=== PATIENT | male | born 1945 | race Caucasian/White ===

== ENCOUNTER 2016-10-10 11:31 | Outpatient (CLI) | payer MEDICARE | END 2016-10-10 11:32 | disposition home or self-care (01) | DX: E55.9 Vitamin D deficiency, unspecified (principal) ==

== ENCOUNTER 2016-11-14 12:49 | Outpatient (CLI) | payer MEDICARE | END 2016-11-14 12:50 | disposition home or self-care (01) | DX: R97.20 Elevated prostate specific antigen [PSA] (principal); N40.0 Benign prostatic hyperplasia without lower urinary tract symptoms ==

== ENCOUNTER 2017-10-23 14:23 | Outpatient (CLI) | payer MEDICARE ==
--- NOTE | 2017-10-23 19:02 | XRAY Report ---
THREE VIEW LEFT ELBOW: 10/23/2017 CLINICAL INDICATION: Pain. FINDINGS: AP, lateral, oblique views of the left elbow demonstrate no evidence of fracture or dislocation. Minimal osteoarthritis is present, with small osteophytes. No foreign body is seen in the soft tissues. IMPRESSION: MINIMAL OSTEOARTHRITIS. TD: 10/23/2017 18:54
--- NOTE | 2017-10-23 19:02 | XRAY Report ---
COMPLETE CERVICAL SPINE: 10/23/2017 CLINICAL INDICATION: Neck pain. 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 Osseous neural foraminal narrowing is present from C4 through C7 bilaterally. There is no evidence of acute fracture or subluxation. IMPRESSION: DEGENERATIVE CHANGES. BILATERAL OSSEOUS NEURAL FORAMINAL NARROWING. TD: 10/23/2017 18:54
== END 2017-10-23 14:24 | disposition home or self-care (01) ==
LOC: DI 14:23
PROVIDERS: ATTEND Internal Medicine
DX: M47.892 Other spondylosis, cervical region (principal); M48.12 Ankylosing hyperostosis [Forestier], cervical region; M19.022 Primary osteoarthritis, left elbow
CPT/HCPCS: 72050

== ENCOUNTER 2018-09-16 13:53 | Outpatient (CLI) | payer MEDICARE | END 2018-09-16 13:54 | disposition home or self-care (01) | LOC: DI 13:53 | PROVIDERS: ATTEND Internal Medicine | DX: I49.3 Ventricular premature depolarization (principal) | CPT/HCPCS: 93306 ==

== ENCOUNTER 2020-10-03 08:35 | Day surgery (SDC) | payer MEDICARE ==
[2020-10-03] MEDS ORDERED: LACTATED RINGERS 1,000 ML IV ONE ×2 (09:00→12:10)
--- NOTE | 2020-10-03 09:40 | ANESTHESIA ---
Pre-Anesthesia VS, & Labs - Diagnosis hx of colon polyps - Procedure colonoscopy Vital Signs: Temp Pulse Resp BP Pulse Ox 35.9 C L 84 16 142/90 H 99 10/03/20 09:00 10/03/20 09:00 10/03/20 09:00 10/03/20 09:00 10/03/20 09:00 Height: 6 ft Weight (kg): 92.7 kg Body Mass Index: 27.7 BMI Classification: Overweight - NPO >8 hours Home Medications and Allergies Home Medications: Ambulatory Orders Bicalutamide [Casodex] 50 mg PO DAILY 10/02/20 Tamsulosin [Flomax] 0.4 mg PO DAILY 10/02/20 allopurinoL [Allopurinol] 100 mg PO DAILY 09/29/15 Bicalutamide [Casodex] 50 mg PO DAILY 10/02/20 Tamsulosin [Flomax] 0.4 mg PO DAILY 10/02/20 Allergies/Adverse Reactions: Allergies Allergy/AdvReac Type Severity Reaction Status Date / Time No Known Drug Allergies Allergy Verified 10/03/20 09:17 Anes History & Medical History - Anesthetic History Anesthesia Complications: reports: No previous complications (HX Prostate CA) Family history of Anesthesia Complications: Denies Family history of Malignant Hyperthermia: Denies - Medical History Cardiovascular: reports: None, Arrhythmia Pulmonary: reports: None Gastrointestinal: reports: Colon polyps Urinary: reports: Other Musculoskeletal: reports: Gout Endocrine/Autoimmune: reports: None Blood Disorders: reports: None Skin: reports: Herpes zoster Smoking Status: Never smoker Psychosocial: reports: Alcohol History of Cancer?: Yes (Prostate CA) - Surgical History General: Colonoscopy Eyes Ears Nose Throat (EENT): Other ([place], hearing aids out) Orthopedic: Other Exam Dental: WNL Mouth Openin Fingerbreadth Neck Mobility: Normal Mallampati classification: III Thyromental Distance: 4-6 cm Respiratory: Lungs clear Cardiovascular: Regular rate, Normal S1, Normal S2, No murmurs Abdomen: Normal bowel sounds, Soft, No tenderness, No hepatospenomegaly, No masses Extremities: No clubbing, No cyanosis, No edema, Normal pulses, No tende rness/swelling Neurological: Normal gait, Normal speech, Strength at 5/5 X4 ext, Normal tone, Sensation intact, Cranial nerves 3-12 NL, Reflexes 2+ Mental/Cognitive Status: Alert/Oriented X3, Normal for patient Cognitive Status: Within normal limits Plan Anesthesia Type: MAC Consent for Procedure(s) Verified and Reviewed: Yes Code Status: Attempt Resuscitation ASA classification: 2-Mild systemic disease Is this case an emergency?: No
[2020-10-03] MEDS ORDERED: ONDANSETRON 4 MG/2 ML VIAL IVP PRN (09:55)
[2020-10-03] MEDS ORDERED: ePHEDrine 50 MG/ML VIAL IVP PRN (09:55)
[2020-10-03] MEDS ORDERED: NALOXONE 0.4 MG/ML VIAL IVP PRN (09:55)
[2020-10-03] MEDS ORDERED: ATROPINE ABBOJECT 1 MG/10 ML SYRINGE IVP PRN (09:55)
[2020-10-03] MEDS ORDERED: LACTATED RINGERS 1,000 ML IV SCH (10:00)
[2020-10-03 13:00] VITALS: BP 128/74
--- NOTE | 2020-10-03 15:01 | ANESTHESIA POST OP EVALUATION ---
Anesthesia Post Eval - Post Anesthesia Eval Vitals: Last Vital Signs Temp 36.6 C 10/03/20 12:55 Pulse 62 10/03/20 12:55 Resp 16 10/03/20 12:55 BP 128/74 10/03/20 12:55 Pulse Ox 99 10/03/20 12:55 CV Function Including HR & BP: positive: Stable Pain Control: positive: Satisfactory Nausea & Vomiting: positive: Negative Mental Status: positive: Baseline Respiratory Status: Airway Patent Hydration Status: Satisfactory
== END 2020-10-03 08:36 | disposition home or self-care (01) ==
LOC: SDS 08:35
PROVIDERS: ATTEND Surgery
DX: Z12.11 Encounter for screening for malignant neoplasm of colon (principal); K57.30 Diverticulosis of large intestine without perforation or abscess without bleeding; K64.8 Other hemorrhoids; Z86.010 Personal history of colon polyps; C61 Malignant neoplasm of prostate; N40.0 Benign prostatic hyperplasia without lower urinary tract symptoms; H91.90 Unspecified hearing loss, unspecified ear; M10.9 Gout, unspecified; F10.20 Alcohol dependence, uncomplicated; E66.3 Overweight; Z68.27 Body mass index [BMI] 27.0-27.9, adult; I49.9 Cardiac arrhythmia, unspecified
CPT/HCPCS: G0105; J7120

== ENCOUNTER 2022-02-22 12:41 | Outpatient (CLI) | payer MEDICARE ==
--- NOTE | 2022-02-22 13:24 | XRAY Report ---
PROCEDURE: Chest 2 View X-Ray INDICATIONS: DYSPNEA ON EXERTION TECHNIQUE: 2 view(s) of the chest. COMPARISON: 10/01/2015. FINDINGS: Surgical changes and devices: None. Lungs and pleura: No pleural effusions or pneumothorax. Lungs are clear. Mediastinum: Mediastinal contours are normal. Heart size is normal. Bones and chest wall: No suspicious bony abnormalities. Apparent healed fracture deformities involvi ng the posterior right seventh and eighth ribs. Soft tissues appear unremarkable. IMPRESSION: No acute cardiopulmonary abnormalities. No focal consolidations. Suspected healed rib fracture deformities involving the posterior right seventh and eighth ribs. Scotty mmend correlation with prior history of trauma to this region. Reviewed by: Pawan Richmond MD on 02/22/2022 1:23 PM PDT Approved by: Pawan Richmond MD on 02/22/2022 1:23 PM PDT Station ID: [id number]
[2022-02-22 14:46] LABS: BASOPHILS % (AUTO) 0.5 %; EOSINOPHILS # (AUTO) 0.1 10^3/uL (0.0-0.7); EOSINOPHILS % (AUTO) 1.1 %; HCT - HEMATOCRIT 40.9 % (42.0-52.0); HGB - HEMOGLOBIN 13.5 g/dL (14.0-18.0); LYMPHOCYTES # (AUTO) 1.6 10^3/uL (1.5-3.5); LYMPHOCYTES % (AUTO) 28.2 %; MEAN PLATELET VOLUME 9.6 fL (7.4-11.4); MONOCYTES # (AUTO) 0.5 10^3/uL (0.0-1.0); MONOCYTES % (AUTO) 8.4 %; NEUTROPHILS # (AUTO) 3.4 10^3/uL (1.5-6.6); NEUTROPHILS % (AUTO) 61.4 %; PLT - PLATELET COUNT 228 10^3/uL (130-450); RED BLOOD COUNT 4.09 10^6/uL (4.70-6.10); RED CELL DISTRIBUTION WIDTH 12.2 % (12.0-15.0); WHITE BLOOD COUNT 5.5 x10^3/uL (4.8-10.8)
[2022-02-22 15:02] LABS: ALBUMIN 3.4 g/dL (3.2-5.5); ALBUMIN/GLOBULIN RATIO 1.1 (1.0-2.2); BILIRUBIN,TOTAL 0.8 mg/dL (0.2-1.0); CALCIUM 8.9 mg/dL (8.5-10.3); TOTAL PROTEIN 6.4 g/dL (6.7-8.2)
== END 2022-02-22 12:42 | disposition home or self-care (01) ==
LOC: DI.S 12:41
PROVIDERS: ATTEND Physician Assistant
DX: R06.09 Other forms of dyspnea (principal); Z85.46 Personal history of malignant neoplasm of prostate
CPT/HCPCS: 36415; 80053; 84153; 85025

== ENCOUNTER 2024-02-07 08:00 | Outpatient (CLI) | payer MEDICARE | END 2024-02-07 08:01 | disposition home or self-care (01) | LOC: LAB.S 08:00 | PROVIDERS: ATTEND Physician Assistant Medical | DX: R09.89 Other specified symptoms and signs involving the circulatory and respiratory systems (principal); J02.9 Acute pharyngitis, unspecified ==

== ENCOUNTER 2024-03-12 12:58 | Outpatient (CLI) | payer MEDICARE ==
--- NOTE | 2024-03-12 15:36 | CT Report ---
PROCEDURE: CT brain without contrast INDICATIONS: FALL, HEAD INJURY TECHNIQUE: Helical axial CT of the brain was obtained without contrast and reformatted in multiple p lanes. Radiation dose reduction was achieved using automated exposure control or adjustment of mA and /or kV according to patient size. COMPARISON: None FINDINGS: CSF spaces: Ventricles are appropriate in size and position. No hydrocephalus. Basal cisterns unre markable. Brain: No midline shift. No intracranial masses or hemorrhage. Hernandez-white matter interface is norm al. Moderate atrophy and multifocal white matter chronic ischemic change noted. Atherosclerotic vasc ular calcification noted in the cavernous segments of both internal carotid arteries. Skull and face: Calvarium and skull base are unremarkable without suspicious lesion. Sinuses: Visualized sinuses and mastoids are clear. IMPRESSION: Atrophy and chronic ischemic change without intracranial hemorrhage or mass effect Reviewed by: Virgil Calles MD on 03/12/2024 2:35 PM AKDT Approved by: Virgil Calles MD on 03/12/2024 2:35 PM AKDT Station ID: [id number]
== END 2024-03-12 12:59 | disposition home or self-care (01) ==
LOC: DI 12:58
PROVIDERS: ATTEND Registered Nurse
DX: S09.90XA Unspecified injury of head, initial encounter (principal); G31.9 Degenerative disease of nervous system, unspecified; I67.82 Cerebral ischemia

== ENCOUNTER 2024-03-31 08:00 | Outpatient (CLI) | payer MEDICARE ==
[2024-03-31 20:52] LABS: BF CLARITY HAZY; BF COLOR YELLOW; BF SOURCE SYNOVIAL; LYMPHOCYTES %,BODY FLUID 16 %; MONOCYTES %,BODY FLUID 14 %; NEUTROPHILS %, BF 70 %
[2024-03-31 21:02] LABS: CC,BF RBC 2000 /mm^3; CC,BF WBC 503 /mm^3
[2024-03-31 21:03] LABS: MESOTHELIAL %, BF 0 %
== END 2024-03-31 23:59 | disposition home or self-care (01) ==
LOC: LAB.S 08:00
PROVIDERS: ATTEND Registered Nurse
DX: M70.30 Other bursitis of elbow, unspecified elbow (principal)
CPT/HCPCS: 81599; 82945; 87070; 87205; 89051; 89060